=== PATIENT | female | born 1970 ===

== ENCOUNTER 2018-10-16 14:32 | Outpatient (CLI) | payer OTHER | END 2018-10-16 14:33 | disposition home or self-care (01) | LOC: C.MAMMO 14:33 | DX: Z12.31 Encounter for screening mammogram for malignant neoplasm of breast (principal) ==

== ENCOUNTER → 2018-10-30 | Outpatient (CLI) | payer OTHER | LOC: C.USIC 12:19 | DX: R10.2 Pelvic and perineal pain (principal) ==